=== PATIENT | male | born 1995 | race African-American/Black ===

== ENCOUNTER 2017-04-30 20:46 | Emergency (ER) | payer OTHER | END 2017-04-30 22:44 | disposition home or self-care (01) | LOC: CFTX 20:46 → CED 20:46 → CFTX 21:42 | DX: S01.81XA Laceration without foreign body of other part of head, initial encounter (principal); W22.8XXA Striking against or struck by other objects, initial encounter; Y93.67 Activity, basketball | CPT/HCPCS: 12011; 99282 ==

== ENCOUNTER 2017-05-08 17:04 | Emergency (ER) | payer OTHER ==
[~2017-05-08] VITALS: Ht 188 cm; Wt 2.8 kg
== END 2017-05-08 17:44 | disposition home or self-care (01) ==
LOC: CFTX 17:04 → CED 17:04 → CFTX 17:31
DX: S61.211D Laceration without foreign body of left index finger without damage to nail, subsequent encounter (principal); X58.XXXD Exposure to other specified factors, subsequent encounter
CPT/HCPCS: 99281